=== PATIENT | male | born 1975 | race American Indian/Alaskan Native ===

== ENCOUNTER 2017-10-16 15:12 | Emergency (ER) | payer SELFPAY ==
[2017-10-16 15:25] VITALS: BP 113/64
--- NOTE | 2017-10-16 17:13 | Emergency Department Report ---
ED Extremity Problem HPI - General Chief complaint: Extremity Injury, Lower Stated complaint: TRICEP PAIN Time Seen by Provider: 10/16/17 16:36 Source: patient Mode of arrival: Ambulatory Limitations: Physical Limitation - History of Present Illness Initial comments: 42-year-old male past medical history none presents with complaint of right elbow discomfort for the last 3-4 days. 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 Patient denies any direct trauma to right elbow denies any falls. Patient states that he has noticed some redness and right elbow swelling at the tip of his elbow. Patient is visibly flexing and extending his elbow but states that it is uncomfortable to do so. Patient is awake alert and oriented 3 not in acute distress denies any fevers or chills. MD Complaint: extremity pain, extremity swelling Onset/Timin -: days(s) Location: right, upper extremity, elbow History of Same: No -: Yes arthralgia Severity scale (0 -10): 6 Quality: aching Consistency: intermittent Improves with: cold therapy, immobilization, elevation Worsens with: exertion, palpation Associated Symptoms: denies other symptoms - Related Data Previous Rx's Medication Instructions Recorded Last Taken Type Acetaminophen/Codeine [Tylenol 1 tab PO Q6H PRN #3 tab 10/16/17 Unknown Rx /Codeine # 3 tab] Ibuprofen [Motrin] 600 mg PO Q8H PRN #25 tablet 10/16/17 Unknown Rx Sulfamethoxazole/Trimethoprim 1 each PO BID #14 tablet 10/16/17 Unknown Rx [Bactrim DS TAB] Allergies Allergy/AdvReac Type Severity Reaction Status Date / Time No Known Allergies Allergy Unverified 10/16/17 15:29 ED Review of Systems ROS: Stated complaint: TRICEP PAIN Other details as noted in HPI Constitutional: denies: chills, fever Eyes: denies: eye pain, eye discharge, vision change ENT: denies: ear pain, throat pain Respiratory: denies: cough, shortness of breath, wheezing Cardiovascular: denies: chest pain, palpitations Endocrine: no symptoms reported Gastrointestinal: denies: abdominal pain, nausea, diarrhea Genitourinary: denies: urgency, dysuria Musculoskeletal: as per HPI, joint swelling, arthralgia. denies: back pain Skin: denies: rash, lesions Neurological: denies: headache, weakness, paresthesias Psychiatric: denies: anxiety, depression Hematological/Lymphatic: denies: easy bleeding, easy bruising ED Past Medical Hx - Past Medical History Hx Hypertension: No Hx CVA: No Hx Heart Attack/AMI: No Hx Congestive Heart Failure: No Hx Diabetes: No Hx Deep Vein Thrombosis: No Hx Pulmonary Embolism: No Hx GERD: No Hx Liver Disease: No Hx Renal Disease: No Hx of Cancer: No Hx Sickle Cell Disease: No Hx Arthritis: No Hx Headaches / Migraines: No Hx Seizures: No Hx Kidney Stones: No Hx Psychiatric Treatment: No Hx Asthma: No Hx COPD: No Hx Tuberculosis: No Hx Dementia: No Hx HIV: No - Surgical History Past Surgical History?: No - Medications Home Medications: Home Medications Medication Instructions Recorded Confirmed Last Taken Type Acetaminophen/Codeine [Tylenol 1 tab PO Q6H PRN #3 tab 10/16/17 Unknown Rx /Codeine # 3 tab] Ibuprofen [Motrin] 600 mg PO Q8H PRN #25 tablet 10/16/17 Unknown Rx Sulfamethoxazole/Trimethoprim 1 each PO BID #14 tablet 10/16/17 Unknown Rx [Bactrim DS TAB] ED Physical Exam - General Limitations: Physical Limitation General appearance: alert, in no apparent distress - Head Head exam: Present: atraumatic, normocephalic - Eye Eye exam: Present: normal appearance, PERRL, EOMI - ENT ENT exam: Present: mucous membranes moist - Neck Neck exam: Present: normal inspection - Respiratory Respiratory exam: Present: normal lung sounds bilaterally. Absent: respiratory distress - Cardiovascular Cardiovascular Exam: Present: regular rate, normal rhythm. Absent: systolic murmur, diastolic murmur, rubs, gallop - GI/Abdominal GI/Abdominal exam: Present: soft, normal bowel sounds - Rectal Rectal exam: Present: deferred - Extremities Exam Extremities exam: Present: normal inspection - Expanded Upper Extremity Exam Right Shoulder Exam: Present: normal inspection, full ROM Upper Arm exam: Present: normal inspection, full ROM Elbow exam: Present: full ROM (right elbow flexion and extension clinically intact. Pronation and supination intact right forearm), tenderness (some tenderness and swelling at distal tip of right elbow near olecranon), swelling, erythema Forearm Wrist exam: Present: normal inspection, full ROM Hand Wrist exam: Present: normal inspection, full ROM Neuro motor exam: Present: wrist extension intact, thumb opposition intact, thumb IP flexion intact, thumb adduction intact, fingers 2-5 abduction intact Vascular: Present: normal capillary refill, radial pulse (distal pulses and capillary refill strong to palpation right upper extremity), brachial pulse, ulnar pulse - Back Exam Back exam: Present: normal inspection - Neurological Exam Neurological exam: Present: alert, oriented X3, CN II-XII intact, normal gait - Psychiatric Psychiatric exam: Present: normal affect, normal mood - Skin Skin exam: Present: warm, dry, intact, normal color. Absent: rash ED Course Vital Signs 10/16/17 15:18 Temperature 98.4 F Pulse Rate 65 Respiratory 14 Rate Blood Pressure 113/64 Blood Pressure 113/64 [Left] O2 Sat by Pulse 99 Oximetry ED Medical Decision Making - Medical Decision Making A/P: Right elbow bursitis 1-flexion and extension intact right elbow. Likely inflammatory bursitis based on clinical history provided by patient. Motrin when necessary, RICE therapy, Renny wrap 2-as there is some overlying erythema will give patient short course of antibiotics. I educated patient on signs and symptoms of septic joint and advised him to return to the ED if redness or erythema worsens at area of current pain. Patient's range of motion is fully intact in the right elbow. Supination pronation of elbow flexion and extension intact strength 5 out of 5 right upper extremity 3-primary care and orthopedic follow-up Critical care attestation.: If time is entered above; I have spent that time in minutes in the direct care of this critically ill patient, excluding procedure time. ED Disposition Clinical Impression: Olecranon bursitis, right elbow Disposition: DC- TO HOME OR SELFCARE Is pt being admited?: No Does the pt Need Aspirin: No Condition: Stable Instructions: Elbow Bursitis (ED), RICE Therapy (ED) Prescriptions: Acetaminophen/Codeine [Tylenol /Codeine # 3 tab] 1 tab PO Q6H PRN #3 tab PRN Reason: Pain Ibuprofen [Motrin] 600 mg PO Q8H PRN #25 tablet PRN Reason: Pain Sulfamethoxazole/Trimethoprim [Bactrim DS TAB] 1 each PO BID #14 tablet Referrals: [facility] [Provider Group] - 3-5 Days [facility] [Provider Group] - 3-5 Days FAMIILA MOTTA MD [Staff Physician] - 3-5 Days Forms: Work/School Release Form(ED) Time of Disposition: 17:13
[2017-10-16] MEDS ORDERED: TYLENOL #3 PO ONE (17:14)
--- NOTE | 2017-10-16 21:35 | XRay Report ---
FINAL REPORT EXAM: XR ELBOW 2V RT HISTORY: Right elbow injury r/o fracture TECHNIQUE: AP and lateral views of the right elbow PRIORS: None. FINDINGS: No evidence for acute fracture or dislocation is seen. The soft tissues are unremarkable. The anterior fat pad is normal. No posterior fat pad is noted. Bony mineralization is normal. IMPRESSION: No acute soft tissue or bony abnormality noted.
== END 2017-10-16 17:28 | disposition home or self-care (01) ==
LOC: ED 15:12
DX: M70.21 Olecranon bursitis, right elbow (principal)
CPT/HCPCS: 99283